=== PATIENT | female | born 1980 | race Caucasian/White ===

== ENCOUNTER 2019-12-23 18:15 | Emergency (ER) | payer OTHER, SELFPAY ==
[2019-12-23 18:35] VITALS: BP 110/76; PULSE 70; RESP 20; TEMP 37.4; O2SAT 99
--- NOTE | 2019-12-23 19:36 | ED.URI ---
HPI - URI/Sore Throat General Chief Complaint: Upper Respiratory Infection Stated Complaint: sore throat cough fever Time Seen by Provider: 12/23/19 19:36 Source: patient and RN notes reviewed Mode of arrival: ambulatory Limitations: no limitations History of Present Illness HPI Narrative: 39 year old female who presents to [facility] care with complaints of body aches, chills, fever with dry cough, headache, and sore throat since Saturday. Patient states that she has been taking Ibuprofen for her symptoms. Patient denies any shortness of breath or any wheezing, respirations even and non labored with SAO2 99% on room air. Patient states that she has been taking Ibuprofen for her symptoms without resolution, reports no flu immunization this season and also states that son diagnosed with strep recently. MD elicited complaint: fever, cough, sore throat and other (headache and body aches) Pertinent past history: tympanostony tubes Onset (ago): day(s) Consistency: constant Severity: moderate Pain scale (0-10): 5 Exacerbating factors: swallowing Relieving factors: nothing Context: sick contacts (son strep) Associated symptoms: fever, chills, myalgias, headache and cough Treatments prior to arrival: ibuprofen Related Data Home Medications Medication Instructions Recorded Confirmed levothyroxine 100 mcg PO DAILY 12/23/19 12/23/19 Allergies Allergy/AdvReac Type Severity Reaction Status Date / Time No Known Allergies Allergy Verified 12/23/19 18:49 Review of Systems Review of Systems: Narrative: CONSTITUTIONAL:positive fever, chills, or sweats. EYES: Denies visual changes, redness, or discharge. ENT Positve scant clear rhinorrhea, minimal congestion, positive sore throat, no otalgia. CARDIOVASCULAR: Denies chest pain, palpitations, or edema. RESPIRATORY: Positive dry cough, no dyspnea. GASTROINTESTINAL: Denies abdominal pain, nausea, vomiting, or diarrhea. GENITOURINARY: Denies dysuria or hematuria. SKIN: Denies rash or itching. MUSCULOSKELETAL: Denies back pain, joint pain, reports body aches NEUROLOGIC:Positive headache,no numbness, or weakness. PSYCHIATRIC: Denies anxiety or depression. All systems reviewed & are unremarkable except as noted in HPI and below PMFSH Past Medical History Medical History (Updated 12/24/19 @ 00:01 by Background Daemon) Hypothyroid Surgical History Surgical History (Updated 12/29/19 @ 09:53 by Abbi Brito NP) H/O dilation and curettage History of endometrial ablation History of placement of ear tubes History of tympanoplasty of left ear Social History Social History (Updated 12/29/19 @ 09:53 by Abbi Brito NP) Smoking status: Former smoker Smoking end date: 10/28/04 Living arrangements: with family Gender identity (if verbalized by the patient): Female Comments At time of signature, agree with nursing past medical, social history. There is no relevant family history pertinent to the presenting complaint Exam Narrative: Exam Narrative: GENERAL: Well-appearing, well-nourished, and in no acute distress. HEAD: Normocephalic, atraumatic. EYES: PERRLA and EOMI. ENT: Nares red with clear rhinorrhea no epistaxis. Mucous membranes moist TM's normal with no injection throat red with no lesions or tonsil enlargement NECK: Supple.no lymphadenopthy CHEST: Clear to auscultation. No respiratory distress.dry cough, SAO2 99% on room air. HEART: Regular rate and rhythm. No murmur heard. Normal peripheral pulses. ABDOMEN: Soft, nontender, nondistended, normal active bowel sounds. EXTREMITIES: Normal range of motion. No edema. SKIN: Warm, dry, no rash. NEURO: No focal deficits. Alert and oriented x3. Course Vital Signs Vital signs: Vital Signs Temperature 37.4 C 12/23/19 18:35 Pulse Rate 70 12/23/19 18:35 Respiratory Rate 20 12/23/19 18:35 Blood Pressure 110/76 12/23/19 18:35 Pulse Oximetry 99 12/23/19 18:35 Temperature 37.4 C 12/23/19 18:35 Pu
== END 2019-12-23 19:56 | disposition home or self-care (01) ==
PROVIDERS: Emergency Provider Registered Nurse
DX: J10.1 Influenza due to other identified influenza virus with other respiratory manifestations (principal); E89.0 Postprocedural hypothyroidism; Z85.850 Personal history of malignant neoplasm of thyroid
CPT/HCPCS: 87081; 87804; 87880; 99213; G0463

== ENCOUNTER 2020-04-12 19:25 | Emergency (ER) | payer OTHER, SELFPAY ==
[2020-04-12 19:35] VITALS: BP 125/76; PULSE 62; RESP 18; TEMP 36.8; O2SAT 99
--- NOTE | 2020-04-12 20:09 | ED.EAR ---
HPI - Ear Problem General Chief complaint: Ear Stated complaint: right ear clogged/pain/pressure Time Seen by Provider: 04/12/20 20:00 Source: patient and RN notes reviewed Mode of arrival: ambulatory Limitations: no limitations History of Present Illness HPI Narrative: 40-year-old female presents with bilateral clogged ears . She also reports nasal congestion, rhinorrhea. Denies cough, fever, sore throat. Denies taking any medications such as antihistamines for her symptoms. Reports using Debrox in her left ear with no relief. MD Complaint: ear pain Related Data Home Medications Medication Instructions Recorded Confirmed levothyroxine 100 mcg PO DAILY 12/23/19 04/12/20 Allergies Allergy/AdvReac Type Severity Reaction Status Date / Time No Known Allergies Allergy Verified 12/23/19 18:49 Review of Systems Review of Systems: Narrative: CONSTITUTIONAL: Denies malaise, chills, sweats, or fever. EYES: Denies visual changes, redness, or discharge. ENT: Reports rhinorrhea, congestion, bilateral otalgia. Denies sinus pain, sore throat. CARDIOVASCULAR: Denies chest pain, palpitations, or edema. RESPIRATORY: Denies cough dyspnea. GASTROINTESTINAL: Denies abdominal pain, nausea, vomiting, diarrhea SKIN: Denies rash or itching. MUSCULOSKELETAL: Denies myalgia. NEUROLOGIC: Denies headache. All systems reviewed & are unremarkable except as noted in HPI and below PMFSH Past Medical History Medical History (Updated 04/12/20 @ 20:12 by Lisa Ponce NP) Hypothyroid Surgical History Surgical History (Updated 12/29/19 @ 09:53 by Abbi Brito NP) H/O dilation and curettage History of endometrial ablation History of placement of ear tubes History of tympanoplasty of left ear Social History Social History (Updated 12/29/19 @ 09:53 by Abbi Brito NP) Smoking status: Former smoker Smoking end date: 10/28/04 Gender identity (if verbalized by the patient): Female Comments At time of signature, agree with nursing past medical, surgical, social and family history. There is no relevant family history pertinent to the presenting complaint Exam Narrative: Exam Narrative: GENERAL: Well-appearing, well-nourished, and in no acute distress. HEAD: Normocephalic EYES: PERRLA, conjunctivae clear ENT: Nares clear, turbinates edematous and erythematous, clear discharge. Mucous membranes moist. TM pearly lackey with dull light reflex bilaterally; no tragal tenderness; excessive wax noted in the right ear, TM visible. Oropharynx not erythematous without lesions. Tonsils not enlarged and without exudate, no drooling, no hoarseness, no trismus, uvula midline. NECK: Supple. No lymphadenopathy CHEST: Clear to auscultation, breath sounds equal. No wheezing, rhonchi, rales, or stridor. No respiratory distress, speaks in full sentences. HEART: Regular rate and rhythm. No murmur heard. SKIN: Warm, dry, no rash. NEURO: Alert and oriented x3. PSYCH: Normal mood and affect Course Course Emergency Course: Patient is aware of diagnosis, understands and agrees to treatment plan. Anticipatory guidance given. Patient agrees to follow-up as directed and is aware of reasons to seek care at the emergency department. Portions of this record may have been created with voice recognition software Vital Signs Vital signs: Vital Signs Temperature 98.2 F 04/12/20 19:35 Pulse Rate 62 04/12/20 19:35 Respiratory Rate 18 04/12/20 19:35 Blood Pressure 125/76 04/12/20 19:35 Pulse Oximetry 99 04/12/20 19:35 Temperature 98.2 F 04/12/20 19:35 Pulse Rate 62 04/12/20 19:35 Respiratory Rate 18 04/12/20 19:35 Blood Pressure 125/76 04/12/20 19:35 Pulse Oximetry 99 04/12/20 19:35 Reviewed. Medical Decision Making MDM Narrative Medical decision making narrative: Differential diagnosis considered: Strep pharyngitis, allergic rhinitis, upper respiratory tract infection, sinusitis, rhinosinusitis, nasopharyngiti
== END 2020-04-12 20:14 | disposition home or self-care (01) ==
PROVIDERS: Emergency Provider Nurse Practitioner; PCP Family Medicine
DX: J01.90 Acute sinusitis, unspecified (principal); E03.9 Hypothyroidism, unspecified; Z87.891 Personal history of nicotine dependence
CPT/HCPCS: 99213; G0463

== ENCOUNTER 2020-05-16 09:21 | Emergency (ER) | payer OTHER, SELFPAY ==
[2020-05-16 09:46] VITALS: BP 120/72; PULSE 70; RESP 16; TEMP 36.9; O2SAT 100
--- NOTE | 2020-05-16 10:06 | ED.FEMALEGU ---
HPI - Female Genitourinary General Chief complaint: Urogenital-Female Stated complaint: Uti Time Seen by Provider: 05/16/20 10:07 Source: patient and RN notes reviewed Mode of arrival: ambulatory Limitations: no limitations History of Present Illness HPI Narrative: This is a 40 years old female presented office for evaluation of possible UTI. Symptoms began this morning with urinary urgency, suprapubic pressure and urinary frequency. She also noticed tinge of blood when she wiped. Related Data Home Medications Medication Instructions Recorded Confirmed levothyroxine 100 mcg PO DAILY 12/23/19 05/16/20 Allergies Allergy/AdvReac Type Severity Reaction Status Date / Time No Known Allergies Allergy Verified 12/23/19 18:49 Review of Systems Review of Systems: Narrative: CONSTITUTIONAL: Denies fever, chills CARDIOVASCULAR: Denies chest pain, palpitation RESPIRATORY: Denies dyspnea, wheezing, cough GASTROINTESTINAL: Denies abdominal pain, nausea, vomiting GENITOURINARY: Denies abnormal vaginal discharge SKIN: Denies rash MUSCULOSKELETAL: Denies acute back pain. Reports right foot stress fracture which she wears a walking boot NEUROLOGIC: Denies lightheaded All other systems reviewed are negative, except as documented in HPI. PMFSH Past Medical History Medical History Hypothyroid Surgical History Surgical History H/O dilation and curettage History of endometrial ablation History of placement of ear tubes History of tympanoplasty of left ear Social History Social History Smoking status: Former smoker Smoking end date: 10/28/04 Gender identity (if verbalized by the patient): Female Comments At time of signature, I agree with nursing past medical, surgical, social and family history. There is no relevant family history pertinent to the presenting complaint. Exam Narrative: Exam Narrative: GENERAL: This is a well-nourished, well-developed patient, in no apparent distress. CARDIOVASCULAR: Regular rate and rhythm without murmurs, gallops, or rubs. RESPIRATORY: Clear to auscultation. Breath sounds equal bilaterally. No wheezes, rales, or rhonchi. GASTROINTESTINAL: Abdomen soft, non-tender, nondistended. Bowel sounds are active. No hepato-splenomegaly, or palpable masses. No guarding. NO CVA tenderness. SKIN: warm, intact with no suspicious lesions or rash, good texture and turgor. NEURO: awake, alert, and oriented to person, place and time. There were no obvious focal neurologic abnormalities. Steady gait BACK: Nontender without deformity or crepitance. No flank tenderness. Monica Coma Scale Eye Opening: Spontaneous 4 [place] Coma Scale Motor: Obeys Commands 6 [place] Coma Scale Verbal: Oriented 5 Course Vital Signs Vital signs: Vital Signs Temperature 98.5 F 05/16/20 09:46 Pulse Rate 70 05/16/20 09:46 Respiratory Rate 16 05/16/20 09:46 Blood Pressure 120/72 05/16/20 09:46 Pulse Oximetry 100 05/16/20 09:46 Temperature 98.5 F 05/16/20 09:46 Pulse Rate 70 05/16/20 09:46 Respiratory Rate 16 05/16/20 09:46 Blood Pressure 120/72 05/16/20 09:46 Pulse Oximetry 100 05/16/20 09:46 MDM - Female Genitourinary MDM Narrative Medical decision making narrative: Discharge instructions reviewed with patient, as well as provided in writing per nursing staff. The instructions also include specific and strict return/GO TO THE ER as well as f/u information. All questions have been answered, and the patient deny any further questions with discharge and discharge plan. Differential Diagnosis Differential diagnosis: Likely urinary tract infection, cervicitis, vaginitis and cystitis Lab Data Attestation: I reviewed the patient's lab results. Labs: Urine Glucose Negative Reference Range: Ne
== END 2020-05-16 10:15 | disposition home or self-care (01) ==
PROVIDERS: Emergency Provider Nurse Practitioner
DX: N30.90 Cystitis, unspecified without hematuria (principal); Z87.891 Personal history of nicotine dependence; E03.9 Hypothyroidism, unspecified
CPT/HCPCS: 81003; 87077; 87086; 87088; 99213; G0463

== ENCOUNTER 2020-12-21 13:47 | Outpatient (CLI) | payer OTHER, SELFPAY ==
--- NOTE | ~2020-12-21 | MM_ITS ---
EXAMINATION: MM screening yamila BI w natasha HISTORY: Screening mammogram TECHNIQUE: Craniocaudal and mediolateral oblique 3-D tomosynthesis images were obtained and synthetic 2-D images were generated. CAD analysis was submitted and interpreted. COMPARISON: None, baseline BREAST PARENCHYMAL COMPOSITION: There are scattered areas of fibroglandular density. FINDINGS: There is no evidence of suspicious mass, calcification, or architectural distortion to sugg est malignancy in either breast. IMPRESSION: 1. No mammographic evidence of malignancy. 2. Recommend routine screening mammography in one year. BI-RADS Category 1: Negative Reviewed, dictated and finalized at location A. [employer]
== END 2020-12-21 13:48 | disposition home or self-care (01) ==
LOC: ANHIMG 13:50
PROVIDERS: Visit Provider Obstetrics & Gynecology
DX: Z12.31 Encounter for screening mammogram for malignant neoplasm of breast (principal)
CPT/HCPCS: 77063; 77067

== ENCOUNTER 2022-08-17 18:04 | Emergency (ER) | payer OTHER, SELFPAY ==
[2022-08-17 18:26] VITALS: BP 125/73; PULSE 72; RESP 18; TEMP 37.1; O2SAT 99
--- NOTE | 2022-08-17 19:16 | ED.EAR ---
HPI - Ear Problem General Chief complaint: Ear Stated complaint: Ear pain Time Seen by Provider: 08/17/22 19:15 Source: patient, RN notes reviewed and old records reviewed Mode of arrival: ambulatory Limitations: no limitations History of Present Illness HPI Narrative: 42 year old female who presents to [facility] care with complaints of right ear pain which she describes as stabbing. Patient reports that pain just started on Saturday after flying home from cruise. Patient denies any drainage from her right ear, denies any known fevers, chills or sweats, has been taking Ibuprofen and Tylenol for her discomfort MD Complaint: ear pain Location: right ear Duration: constant Severity: severe Discharge from ear: Reports no Treatment prior to arrival: oral analgesic Related Data Home Medications Medication Instructions Recorded Confirmed estradiol 0.05 mg/24 hr weekly 0.05 mg transdermal WEEKLY 08/17/22 08/17/22 transdermal patch levothyroxine 125 mcg tablet 125 mcg PO DAILY 08/17/22 08/17/22 progesterone micronized 100 mg 100 mg PO DAILY 08/17/22 08/17/22 capsule rivaroxaban 10 mg tablet (Xarelto) 10 mg PO DAILY 08/17/22 08/17/22 Allergies Allergy/AdvReac Type Severity Reaction Status Date / Time No Known Allergies Allergy Verified 12/23/19 18:49 Review of Systems Review of Systems: CONSTITUTIONAL: Denies fever, chills, or sweats. EYES: Denies visual changes, redness, or discharge. ENT: Denies rhinorrhea, congestion, sore throat, positive fro right ear pain CARDIOVASCULAR: Denies chest pain, palpitations, or edema. RESPIRATORY: Denies cough or dyspnea. GASTROINTESTINAL: Denies abdominal pain, nausea, vomiting, or diarrhea. GENITOURINARY: Denies dysuria or hematuria. SKIN: Denies rash or itching. MUSCULOSKELETAL: Denies back pain, joint pain, or myalgia. NEUROLOGIC: Denies headache, numbness, or weakness. PSYCHIATRIC: Denies anxiety or depression. All systems reviewed & are unremarkable except as noted in HPI and below PMFSH Past Medical History Medical History (Updated 08/19/22 @ 21:48 by Abbi Brito NP) Factor 5 Leiden mutation, heterozygous Hypothyroid Surgical History Surgical History H/O dilation and curettage History of endometrial ablation History of placement of ear tubes History of tympanoplasty of left ear Social History Social History (Updated 08/19/22 @ 21:49 by Abbi Brito NP) Smoking status: Former smoker Smoking end date: 10/28/04 Alcohol intake: current Alcohol use details: social Substance use type: does not use Living arrangements: with family Gender identity (if verbalized by the patient): Female Comments At time of signature, agree with nursing past medical, surgical, social and family history. There is no relevant family history pertinent to the presenting complaint Exam Narrative: GENERAL: Well-appearing, well-nourished, and in no acute distress. HEAD: Normocephalic, atraumatic. EYES: PERRLA and EOMI. ENT: Nares clear, no rhinorrhea or epistaxis. Mucous membranes moist.Bilateral TM;s normal with good light reflex, right ear canal red and excoriated with some swelling noted no drainage noted.throat pink with no swelling. NECK: Supple.no lymphadenopathy CHEST: Clear to auscultation. No respiratory distress.no cough noted SAO2 99% on room air HEART: Regular rate and rhythm. No murmur heard. Normal peripheral pulses. ABDOMEN: Soft, nontender, nondistended, normal active bowel sounds. EXTREMITIES: Normal range of motion. No edema. SKIN: Warm, dry, no rash. NEURO: No focal deficits. Alert and oriented x3. Course Course Emergency Course: Patient is aware of diagnosis, understands and agrees to treatment plan.? Anticipatory guidance given.? Patient agrees to follow-up as directed and is aware of reasons to seek care at the emergency department. Portions of this record may have been created with irvin
== END 2022-08-17 19:33 | disposition home or self-care (01) ==
PROVIDERS: Emergency Provider Registered Nurse; PCP Family Medicine
DX: H60.91 Unspecified otitis externa, right ear (principal); Z87.891 Personal history of nicotine dependence; E03.9 Hypothyroidism, unspecified; D68.51 Activated protein C resistance
CPT/HCPCS: 99213; G0463

== ENCOUNTER 2023-02-22 19:36 | Emergency (ER) | payer OTHER, SELFPAY ==
[2023-02-22 19:43] VITALS: BP 126/82; PULSE 71; RESP 16; TEMP 36.7; O2SAT 100
--- NOTE | 2023-02-22 19:52 | ED.URI ---
HPI - URI/Sore Throat General Chief Complaint: Upper Respiratory Infection Stated Complaint: cold Time Seen by Provider: 02/22/23 19:48 Source: patient and RN notes reviewed Mode of arrival: ambulatory Limitations: no limitations History of Present Illness HPI Narrative: 42-year-old female presents concern for 4 day history of nasal congestion rhinorrhea, sinus pressure and pain, cough, sore throat. Reports she has been taking Robitussin DM. She denies fever, aches, chills, sweats. Reports general malaise MD elicited complaint: sore throat and nasal congestion Related Data Home Medications Medication Instructions Recorded Confirmed estradiol 0.05 mg/24 hr weekly 0.05 mg transdermal WEEKLY 08/17/22 08/17/22 transdermal patch levothyroxine 125 mcg tablet 125 mcg PO DAILY 08/17/22 08/17/22 progesterone micronized 100 mg 100 mg PO DAILY 08/17/22 08/17/22 capsule rivaroxaban 10 mg tablet (Xarelto) 10 mg PO DAILY 08/17/22 08/17/22 Allergies Allergy/AdvReac Type Severity Reaction Status Date / Time No Known Allergies Allergy Verified 12/23/19 18:49 Review of Systems Review of Systems: CONSTITUTIONAL: Reports malaise. Denies chills, sweats, or fever. EYES: Denies visual changes, redness, or discharge. ENT: Reports rhinorrhea, congestion, sinus pain, and sore throat. CARDIOVASCULAR: Denies chest pain, palpitations, or edema. RESPIRATORY: Reports cough. Denies dyspnea. GASTROINTESTINAL: Denies abdominal pain, nausea, vomiting, diarrhea SKIN: Denies rash or itching. MUSCULOSKELETAL: Denies myalgia. NEUROLOGIC: Denies headache. All systems reviewed & are unremarkable except as noted in HPI and below [facility] Past Medical History Medical History (Updated 02/22/23 @ 20:00 by Lisa Ponce NP) Factor 5 Leiden mutation, heterozygous Hypothyroid Surgical History Surgical History H/O dilation and curettage History of endometrial ablation History of placement of ear tubes History of tympanoplasty of left ear Social History Social History (Updated 08/19/22 @ 21:49 by Abbi Brito NP) Smoking status: Former smoker Smoking end date: 10/28/04 Alcohol intake: current Alcohol use details: social Substance use type: does not use Living arrangements: with family Gender identity (if verbalized by the patient): Female Comments At time of signature, agree with nursing past medical, surgical, social and family history. There is no relevant family history pertinent to the presenting complaint Exam Narrative: GENERAL: Well-appearing, well-nourished, and in no acute distress. HEAD: Normocephalic EYES: PERRLA, conjunctivae clear ENT: Nares clear, turbinates edematous and erythematous, clear discharge. Mucous membranes moist. TM pearly lackey with dull light reflex bilaterally; no tragal tenderness. Oropharynx erythematous without lesions. Tonsils not enlarged and without exudate, no drooling, no hoarseness, no trismus, uvula midline. NECK: Supple. No lymphadenopathy CHEST: Clear to auscultation, breath sounds equal. No wheezing, rhonchi, rales, or stridor. No respiratory distress, speaks in full sentences. HEART: Regular rate and rhythm. No murmur heard. SKIN: Warm, dry, no rash. NEURO: Alert and oriented x3. PSYCH: Normal mood and affect Course Course Emergency Course: Patient is aware of diagnosis, understands and agrees to treatment plan. Anticipatory guidance given. Patient agrees to follow-up as directed and is aware of reasons to seek care at the emergency department. Portions of this record may have been created with voice recognition software Level of Care: Express Care Visit Vital Signs Vital signs: Vital Signs Temperature 98.1 F 02/22/23 19:43 Pulse Rate 71 02/22/23 19:43 Respiratory Rate 16 02/22/23 19:43 Blood Pressure 126/82 02/22/23 19:43 Pulse Oximetry 100 02/22/23 19:43 Oxygen Delivery Room Air
== END 2023-02-22 20:05 | disposition home or self-care (01) ==
PROVIDERS: Emergency Provider Nurse Practitioner; PCP Family Medicine
DX: U07.1 COVID-19 (principal); E03.9 Hypothyroidism, unspecified; D68.51 Activated protein C resistance; Z87.891 Personal history of nicotine dependence
CPT/HCPCS: 87081; 87426; 87804; 87880; 99213; C9803; G0463

== ENCOUNTER 2023-07-31 08:20 | Emergency (ER) | payer OTHER, SELFPAY ==
[2023-07-31 08:27] VITALS: BP 131/78; PULSE 84; RESP 20; TEMP 36.7; O2SAT 96
--- NOTE | 2023-07-31 08:31 | ED.GENADULT ---
HPI - General Adult General Chief complaint: Urogenital-Female Stated complaint: Blood In Urine Source: patient and RN notes reviewed History of Present Illness HPI narrative: 43 yo F presents to urgent care with complaints of hematuria x 1 this morning. Pt states she is unsure if it was from her urine or her vagina. Pt denies any burning with urination, urinary frequency, urgency, flank pain, back pain, abdominal pain, fevers, or chills. Pt is on Xarelto and states she is going through menopause. Related Data Home Medications Medication Instructions Recorded Confirmed estradiol 0.05 mg/24 hr weekly 0.05 mg transdermal WEEKLY 08/17/22 07/31/23 transdermal patch levothyroxine 125 mcg tablet 125 mcg PO DAILY 08/17/22 07/31/23 progesterone micronized 100 mg 100 mg PO DAILY 08/17/22 07/31/23 capsule rivaroxaban 10 mg tablet (Xarelto) 10 mg PO DAILY 08/17/22 07/31/23 Allergies Allergy/AdvReac Type Severity Reaction Status Date / Time No Known Allergies Allergy Verified 07/31/23 08:41 Review of Systems Review of Systems: CONSTITUTIONAL: Denies fever, chills, or sweats. EYES: Denies visual changes, redness, or discharge. ENT: Denies otalgia and sore throat CARDIOVASCULAR: Denies chest pain, palpitations, or edema. RESPIRATORY: Denies cough or dyspnea. GASTROINTESTINAL: Denies abdominal pain, nausea, vomiting, or diarrhea. GENITOURINARY: hematuria this morning. SKIN: Denies rash or itching. MUSCULOSKELETAL: Denies back pain, joint pain, or myalgia. NEUROLOGIC: Denies headache, numbness, or weakness. Pertinent positives per HPI. [facility] Past Medical History Medical History (Updated 07/31/23 @ 08:50 by Opal Mann APRN) Factor 5 Leiden mutation, heterozygous Hypothyroid Surgical History Surgical History H/O dilation and curettage History of endometrial ablation History of placement of ear tubes History of tympanoplasty of left ear Social History Social History (Updated 08/19/22 @ 21:49 by Abbi Brito NP) Smoking status: Former smoker Smoking end date: 10/28/04 Alcohol intake: current Alcohol use details: social Substance use type: does not use Living arrangements: with family Gender identity (if verbalized by the patient): Female Comments At the time of my signature, I reviewed and agree with the nursing past medical, surgical, social, and family history. There is no relevant family history pertinent to the patient complaint. Exam Narrative: GENERAL: This is a well-nourished, well-developed patient, in no apparent distress. HEAD: normocephalic, atraumatic. EYES: Sclera clear/white. Vision is grossly intact. EARS: External ears normal, auditory canals clear and without drainage, TMs normal without perforation. Hearing grossly intact. NOSE: External nose normal with no obvious nasal discharge, nares without redness, no rhinorrhea. THROAT: Mucous membranes moist, posterior pharynx clear. NECK: Neck supple, non-tender without lymphadenopathy, masses or thyromegaly. CARDIOVASCULAR: Regular rate and rhythm without murmurs, gallops, or rubs. RESPIRATORY: Clear to auscultation. Breath sounds equal bilaterally. No wheezes, rales, or rhonchi. GASTROINTESTINAL: Abdomen soft, non-tender, nondistended. Bowel sounds are active. No hepato-splenomegaly, or palpable masses. No guarding. SKIN: warm, intact with no suspicious lesions or rash, good texture and turgor. NEURO: awake, alert, and oriented to person, place and time. There were no obvious focal neurologic abnormalities. EXTREMITIES: No clubbing, cyanosis, or edema. No joint tenderness, effusion, or edema noted. BACK: Nontender without deformity or crepitus. No flank tenderness. Course Course Level of Care: Express Care Visit Vital Signs Vital signs: Vital Signs Temperature 98.1 F 07/31/23 08:27 Pulse Rate 84 07/31/23 08:27 Respiratory Rate 20
== END 2023-07-31 08:55 | disposition home or self-care (01) ==
PROVIDERS: Emergency Provider Nurse Practitioner Family; PCP Family Medicine
DX: Z71.1 Person with feared health complaint in whom no diagnosis is made (principal); E03.9 Hypothyroidism, unspecified; Z87.891 Personal history of nicotine dependence; Z79.899 Other long term (current) drug therapy; Z79.01 Long term (current) use of anticoagulants
CPT/HCPCS: 81003; 87086; 99213; G0463

== ENCOUNTER 2024-05-07 19:28 | Emergency (ER) | payer OTHER, SELFPAY ==
[2024-05-07 19:38] VITALS: BP 126/91; PULSE 77; RESP 16; TEMP 36.4; O2SAT 99
--- NOTE | 2024-05-07 20:22 | ED.UPPEXIN ---
HPI - Extremity Injury (Upper) General Chief Complaint: Extremity Injury, Upper Stated Complaint: right shoulder/left elbow pain Time Seen by Provider: 05/07/24 20:12 Source: patient and RN notes reviewed Mode of arrival: ambulatory Limitations: no limitations History of Present Illness HPI narrative: Patient presents today complaining of 3 week history of right shoulder pain with occasional radiation down the arm, as well as left elbow pain since late February. She also has some occasional radiation to the left hand. Denies injury to the right shoulder or left elbow. Denies numbness or tingling to either extremity. 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 She currently rates her pain 7/10 and has been taking ibuprofen without relief. She has been diagnosed with left elbow tendinitis in the past and it was suggested that she wear a wrist brace at that time. She has been wearing it recently as well without relief of symptoms. Pain increases in the shoulder with movement. Related Data Home Medications Medication Instructions Recorded Confirmed estradiol 0.05 mg/24 hr weekly 0.05 mg transdermal WEEKLY 08/17/22 05/07/24 transdermal patch levothyroxine 125 mcg tablet 125 mcg PO DAILY 08/17/22 05/07/24 progesterone micronized 100 mg 100 mg PO DAILY 08/17/22 07/31/23 capsule rivaroxaban 10 mg tablet (Xarelto) 10 mg PO DAILY 08/17/22 05/07/24 Allergies Allergy/AdvReac Type Severity Reaction Status Date / Time No Known Allergies Allergy Verified 07/31/23 08:41 Review of Systems Review of Systems: CONSTITUTIONAL: Denies body aches, fever, chills, or sweats. EYES: Denies visual changes, redness, or discharge. ENT: Denies rhinorrhea, congestion, sore throat, or otalgia. CARDIOVASCULAR: Denies chest pain, palpitations, or edema. RESPIRATORY: Denies cough or dyspnea. GASTROINTESTINAL: Denies abdominal pain, nausea, vomiting, or diarrhea. GENITOURINARY: Denies dysuria or hematuria. SKIN: Denies rash, itching, or wounds. MUSCULOSKELETAL: Denies back pain, or myalgia.+ right shoulder and left elbow pain NEUROLOGIC: Denies headache, numbness, tingling, or weakness. PSYCH: Denies depression or anxiety. [facility] Past Medical History Medical History Factor 5 Leiden mutation, heterozygous Hypothyroid Surgical History Surgical History H/O dilation and curettage History of endometrial ablation History of placement of ear tubes History of tympanoplasty of left ear Social History Social History Smoking status: Former smoker Smoking end date: 10/28/04 Alcohol intake: current Alcohol use details: social Substance use type: does not use Living arrangements: with family Gender identity (if verbalized by the patient): Female Comments At time of signature, I have reviewed and agree with nursing past medical, surgical, social and family history unless otherwise noted. Please see nursing chart for further information. There is no relevant family history pertinent to the presenting complaint Exam Narrative: GENERAL: Well-appearing, well-nourished, and in no acute distress. HEAD: Normocephalic, atraumatic. EYES: EOMI. No redness or drainage. Conjunctivae normal. ENT: Mucous membranes pink and moist. NECK: Normal AROM. CHEST: No respiratory distress. EXTREMITIES: Right shoulder: Mild tenderness to the lateral shoulder. No edema noted. Pain increases to the superior shoulder area with any AROM. Distal sensation intact. Capillary refill normal. Radial pulse normal. Left elbow: Elbow is nontender. No edema, ecchymosis, erythema noted. Full AROM without pain. Distal sensation intact. Capillary refill normal. Radial pulse normal. SKIN: Warm, dry, no rash. Capillary refill normal. Normal skin
== END 2024-05-07 20:29 | disposition home or self-care (01) ==
PROVIDERS: Emergency Provider Nurse Practitioner; PCP Family Medicine
DX: M25.511 Pain in right shoulder (principal); M77.8 Other enthesopathies, not elsewhere classified; D68.51 Activated protein C resistance; E03.9 Hypothyroidism, unspecified; Z87.891 Personal history of nicotine dependence
CPT/HCPCS: 99213; G0463